=== PATIENT | female | born 1990 | race Caucasian/White ===

== ENCOUNTER 2021-08-31 14:07 | Emergency (ER) | payer BC, SELFPAY ==
--- NOTE | ~2021-08-31 | XR_ITS ---
EXAMINATION: XR foot LT min 3V DATE: 08/31/2021 14:47 INDICATION: Lateral left foot pain. TECHNIQUE: 4 views of left foot were obtained. COMPARISON: None. FINDINGS: Bone alignment is normal. No fracture. Joint spaces are well maintained. IMPRESSION: 1. Normal left foot. Reviewed, dictated and finalized at location A. IMPRESSION: 1. Normal left foot.
[2021-08-31 14:30] VITALS: BP 116/72; PULSE 88; RESP 16; TEMP 37.2; O2SAT 100
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
== END 2021-08-31 15:28 | disposition home or self-care (01) ==
PROVIDERS: Emergency Provider Nurse Practitioner Family
DX: S90.32XA Contusion of left foot, initial encounter (principal); X58.XXXA Exposure to other specified factors, initial encounter
CPT/HCPCS: 73630; 99213; G0463